=== PATIENT | female | born 1990 | race Caucasian/White ===

== ENCOUNTER 2018-06-18 16:52 | Inpatient (IN) ==
[2018-06-18] MEDS ORDERED: LACTATED RINGER'S 1,000 ML IV PRN ×3 (17:44→21:07)
[2018-06-18] MEDS ORDERED: PENICILLIN G POTASSIUM 6 MU in DEXTROSE 5% 250 ML IV STA (17:44)
[2018-06-18] MEDS ORDERED: OXYTOCIN 30 UNITS/500 ML BAG IV PRN ×2 (17:44→21:07)
[2018-06-18] MEDS: LACTATED RINGER'S 1,000 ML IV SCH ×2 (17:56→19:36)
[2018-06-18] MEDS ORDERED: BETAMETH SOD PHOS/ACETATE IA 6 MG/ML IM SCH (18:00)
[2018-06-18 18:12] LABS: Hematocrit (blood only) 40.9 % (37-47); Hemoglobin 14.2 g/dL (12.0-16.0); Mean Corpuscular Volume 90.9 fL (80-100); Mean Platelet Volume 10.4 fL (7.4-10.4); Platelet Count 243 K/uL (130-400); RDW Coefficient of Variation 12.5 % (11.5-14.5); RDW Standard Deviation 41.1 fL (36.4-46.3); White Blood Count 15.76 K/uL (4.8-10.8)
[2018-06-18 18:13] LABS: Mean Corpuscular Hgb Conc 34.7 g/dL (32-36)
--- NOTE | 2018-06-18 18:32 | History & Physical Report ---
Date of Service June 18, 2018 Assessment & Plan (1) labor: 27yo @ 36 07/21 in spontaneous labor Will admit to L&D, labs, EFM/toco, IV fluids. For labor: GBS is unknown, will begin Pen G for GBS prophylaxis. Since prior to 37w, will give celestone dose now, will likely not be in 24h for 2nd dose. Anticipate office GBS swab results will be available tomorrow. For h/o trichomonas: per [place] STI testing guidelines, will test for HIV , syphilis, Hep B and Hep C. Patient is aware of this and agreeable. Will also collect re-swab for trich today. Paient plans for epidural, ok to request this when she desires. History of Present Illness Chief Complaint: Spontaneous labor Primary Care Provider: NO PCP 27yo @ 36 07/21 presents with spontaneous labor. She had some low back pains overnight, and then approximately 2pm today had gush of clear fluid. Contractions picked up somewhat after ROM. No vaginal bleeding. + movement. is complicated by transfer of care from [place] at 34w when she moved to [place]. She was also diagnosed with trichomonas last month and completed antibiotics 05/27/18. GBS was collected 06/17/18 in the office, this is pending and per lab results will be available tomorrow. Allergies Allergy/AdvReac Type Severity Reaction Status Date / Time bupropion [From Wellbutrin] Allergy Seizure Verified 06/18/18 17:08 tramadol Allergy Seizure Verified 06/18/18 17:08 Home Medications Home Medications Medication Instructions Recorded Confirmed Type PNV cmb#95-ferrous fumarate-FA 06/18/18 History [] Patient History Medical History H/O wisdom tooth extraction Surgical History Hx of cholecystectomy Family History Other Anxiety Depression Social History marital status: Current Living Situation: Parent Other Information That Helps Us Care for You: No Feels Safe at Home: Yes Safety Concerns: Feels Safe At This Time Smoking Status: Current every day smoker Tobacco Type: cigarettes Cigarettes per Day: 12 Hx Alcohol Use: No Hx Substance Use: Yes (opiates and "speed", sober since Jun 2016) substance use type: opiates Last Used Substance Other:: June 2016 Beliefs That Will Affect Care: None Preferred Language: Serbian Communication Ability: Effective Hub Cutter Required: No Review of Systems All systems reviewed & are unremarkable except as noted in HPI & below Physical Exam 2 Vital Signs (Past 24 Hours): Last Vital Signs Temp 36.7 C 06/18/18 17:11 Pulse 123 H 06/18/18 16:57 Resp 20 06/18/18 18:00 BP 135/82 06/18/18 16:57 Physical Exam: Gen: AAOx3 NAD CV: [id number] L: CTAB Abd: soft, gravid, NTTP Ext: no calf tenderness Sterile spec exam: +nitrizine, +pooling, grossly ruptured clear fluid. Visible scalp/hair. SVE: 4/80/-2 FHT: Cat 1 150s mod yinka, +accels, no decels [place]: Q 2-3 min Limited bedside ultrasound: cephalic, anterior placenta. + movement and cardiac activity.
[2018-06-18] MEDS ORDERED: fentaNYL citrate 100 MCG/2 ML VIAL ONE (18:48)
[2018-06-18] MEDS ORDERED: BUPIVACAINE 0.25% 30 ML VIAL ONE (18:48)
[2018-06-18] MEDS ORDERED: ePHEDrine sulfate 50 MG/ML AMP ONE (18:48)
[2018-06-18] MEDS ORDERED: fentaNYL 2MCG/ML ROPIV 1.25MG/ML 100 ML BAG EPI ONE (18:49)
[2018-06-18 19:02] LABS: Hepatitis B Surface Antibody Non-Immune
--- NOTE | 2018-06-18 19:08 | Anesthesiology Consultation ---
Date of Service June 18, 2018 Assessment & Plan Chart Review Chart Review: Acceptable Risk for Labor Epidural Consults Requested none ASA ASA3 Proposed Anesthesia Anesthesia Type: Labor Epidural Risk / Benefits Reviewed With: PT / POA / Parent / Guardian, Accepts Plan and Informed Consent Obtained NPO Date Last Intake of Fluids: 06/18/18 Time Last Intake of Fluids: 15:00 Date Last Intake of Solids: 06/18/18 Time Last Intake of Solids: 14:00 History Height/Weight Height: 5 ft 3 in Weight: 107.955 kg Allergies Allergy/AdvReac Type Severity Reaction Status Date / Time bupropion [From Wellbutrin] Allergy Seizure Verified 06/18/18 17:08 tramadol Allergy Seizure Verified 06/18/18 17:08 Medications Home Medications Medication Instructions Recorded Confirmed Last Taken PNV cmb#95-ferrous fumarate-FA 06/18/18 Unknown [] Active Medications Generic Name Dose Route Start Last Admin Trade Name Freq PRN Reason Stop Dose Admin Betamethasone Acet/Betameth SodPhos 12 mg 06/18/18 18:00 06/18/18 18:24 Celestone Soluspan IM 07/18/18 17:59 12 mg ONCE CHARISMA Administration Lactated Ringer's 1,000 mls @ 125 mls/hr 06/18/18 17:45 06/18/18 18:30 Lr IV 06/20/18 17:44 999 mls/hr .Q8H CHARISMA Infusion Past Medical History Medical History GERD (gastroesophageal reflux disease) H/O wisdom tooth extraction [place] teeth extracted Past Family History Family History Other Anxiety Depression Past Surgical History Surgical History Hx of cholecystectomy Past Anesthesia History No Hx of Anesthesia Complications and No Family Hx of Anesthesia Complications History of PONV No Motion Sickness Screening History of Motion Sickness: No Social History Smoking Status: Current every day smoker tobacco type: cigarettes Smoking cigarettes per day: 12 Hx Alcohol Use: No Hx Substance Use: Yes (opiates and "speed", sober since Jun 2016) substance use type: opiates Last Used Substance Other:: June 2016 Exercise / Class Metabolic Activity III < 4 Walking/Shop/Light housework Physical Exam Vital Signs Last Vital Signs Temp 36.7 C 06/18/18 17:11 Pulse 113 H 02/02/19 19:04 Resp 22 06/18/18 18:30 BP 130/87 06/18/18 18:56 Pulse Ox 100 06/18/18 19:04 ENMT Mouth: no dentition abnormality Thyromental Distance: > or= 3.5 Finger Breadths Mallampati Class: II Neck normal visual inspection and trachea midline; neck extension not limited Respiratory normal respiratory effort Auscultation: lungs clear to auscultation bilaterally Cardiovascular Rate/Rhythm: regular rate and regular rhythm Heart Sounds: no murmur Vessels: no carotid bruit Musculoskeletal Spine: lumbar spine normal to inspection; normal cervical ROM Neurologic moves all extremities Motor/Sensory: no sensory deficit Psychiatric Orientation: alert and oriented x 3 Testing Laboratory Results 06/18/18 17:59
[2018-06-18] MEDS ORDERED: fentaNYL 2MCG/ML ROPIV 1.25MG/ML 100 ML BAG EPI PRN (19:38)
[2018-06-18] MEDS ORDERED: ONDANSETRON INJ 2 MG/ML 2 ML VIAL IV PRN (19:38)
[2018-06-18] MEDS ORDERED: NALOXONE HCL 0.4 MG/1 ML VIAL/CARP IV PRN (19:38)
[2018-06-18] MEDS ORDERED: NALOXONE HCL 1 MG in SODIUM CHLORIDE 0.9% 1000ML 1,000 ML IV PRN (19:38)
[2018-06-18] MEDS ORDERED: DiphenhydrAMINE HCL 50 MG/ML VIAL IV PRN (19:38)
[2018-06-18] MEDS ORDERED: PROMETHAZINE HCL 25 MG in SODIUM CHLORIDE 0.9% 50 ML IV PRN (19:38)
[2018-06-18] MEDS ORDERED: NALBUPHINE HCL INJ 10 MG/ML AMP IV PRN (19:38)
[2018-06-18] MEDS ORDERED: ePHEDrine sulfate 50 MG/ML AMP IV PRN (19:38)
[2018-06-18 19:41] LABS: Hepatitis C IgG 13Yrs+Old_Rflx Neg (Neg)
--- NOTE | 2018-06-18 20:10 | Obstetrical Progress Note ---
Date of Service June 18, 2018 Subjective Comfortable with epidural. TUMS for GERD symptoms. FHT Cat 1. Ctx Q 2-3 Continue labor. Physical Exam 2 Vital Signs (Past 24 Hours): Last Vital Signs Temp 37.0 C 06/18/18 19:30 Pulse 134 H 06/18/18 20:04 Resp 20 06/18/18 20:00 BP 103/64 06/18/18 20:02 Pulse Ox 100 06/18/18 20:04
[2018-06-18] MEDS: CALCIUM CARBONATE 500 MG CHEWABLE TAB PO PRN (20:21)
--- NOTE | 2018-06-18 21:23 | Obstetrical Progress Note ---
Date of Service June 18, 2018 Subjective Comfortable with epidural. FHT 170s, mod yinka, +accels, no decels. [place]: not picking up ctx, difficult to palpate due to body habitus. IUPC placed. Will monitor to determine if ctx have slowed, if so will begin pitocin. Patient is agreeable to this plan. Suspect FHT elevated due to administration of ephedrine after epidural. Continue to monitor. Physical Exam 2 Vital Signs (Past 24 Hours): Last Vital Signs Temp 37.0 C 06/18/18 19:30 Pulse 111 H 06/18/18 21:19 Resp 20 06/18/18 20:30 BP 124/65 06/18/18 21:19 Pulse Ox 100 06/18/18 21:19
[2018-06-18] MEDS: PENICILLIN G POTASSIUM 3 MU in DEXTROSE 5% 100 ML IV PRN (23:35)
[2018-06-19] MEDS: LACTATED RINGER'S 1,000 ML IV SCH (02:16)
[2018-06-19] MEDS: PENICILLIN G POTASSIUM 3 MU in DEXTROSE 5% 100 ML IV PRN ×2 (04:23→08:19)
[2018-06-19] MEDS: CALCIUM CARBONATE 500 MG CHEWABLE TAB PO PRN (04:36)
--- NOTE | 2018-06-19 06:49 | Obstetrical Progress Note ---
Date of Service June 19, 2018 Subjective Completely dilated, +1 station, feeling urge to push. FHT Cat 1. [place] Q 2. Continue pushing. Anticipate . Physical Exam 2 Vital Signs (Past 24 Hours): Last Vital Signs Temp 37.2 C 06/19/18 04:01 Pulse 137 H 06/19/18 06:44 Resp 18 06/19/18 06:00 BP 111/55 L 06/19/18 06:38 Pulse Ox 89 L 06/19/18 06:44
[2018-06-19] MEDS ORDERED: METHYLERGONOVINE MALEATE 0.2 MG/ML AMP ONE (09:02)
[2018-06-19] MEDS ORDERED: OXYCODONE/ACETAMINOPHEN 5mg/325mg TAB PO PRN (09:24)
[2018-06-19] MEDS ORDERED: HYDROCORTISONE ACETATE 25 MG SUPP PR PRN (09:24)
[2018-06-19] MEDS ORDERED: BENZOCAINE 20% AER SPR 82.5 GM CAN EXT PRN (09:24)
[2018-06-19] MEDS ORDERED: METHYLERGONOVINE MALEATE 0.2 MG/ML AMP IM ONE (09:24)
[2018-06-19] MEDS ORDERED: SUPERCREAM 0.870% 15 GM JAR EXT PRN (09:24)
[2018-06-19] MEDS ORDERED: DIPHTHERIA/TETANUS/PERTUSSIS 0.5 ML SYR/VIAL IM ONE (09:24)
[2018-06-19] MEDS ORDERED: OXYTOCIN 30 UNITS/500 ML BAG IV PRN (09:24)
--- NOTE | 2018-06-19 09:25 | Procedure Note ---
Vaginal Delivery Summary Date of Service June 19, 2018 Vaginal Delivery Summary Predelivery diagnoses: 27-year-old at 36 weeks 4 days, spontaneous labor , history of trichomonas treated in this Post delivery diagnoses: Same Procedure: Spontaneous vaginal delivery, repair of first-degree perineal laceration Estimated blood loss: 400 mL Surgeon: Dr. Land Complications: None Description of delivery: Patient presented after spontaneous rupture of membranes at home and regular contractions, she was admitted and desired an epidural. After a nutrition epidural, her contractions spaced out significantly and an IUPC was placed and Pitocin was given. She progressed to complete and began to push. She spontaneously vaginally delivered a viable male from the cephalic presentation. Head delivered in left occiput anterior position, no nuchal cord was noted, anterior shoulder delivered followed by posterior shoulder followed by body. Baby was placed on mother's abdomen and spontaneous cry was heard. Delayed cord clamping was employed, and after 1 minute the cord was doubly clamped and cut. Cord blood was obtained. The placenta was then delivered spontaneously intact with a three-vessel cord. The uterus was swept of all clots and debris. Pitocin was given and the uterus began to clamp down. However it was still somewhat boggy, so a dose of Methergine was given to obtain excellent hemostasis. The cervix vagina and perineum were inspected, and a first-degree perineal laceration was noted and repaired in standard fashion with 3-0 Vicryl. Excellent hemostasis was observed. Sponge, instrument, needle counts were correct at the conclusion of the delivery x2. Mother and baby are recovering in stable and good condition in the room.
[2018-06-19] MEDS ORDERED: CALCIUM CARBONATE 500 MG CHEWABLE TAB PO PRN (09:39)
--- NOTE | 2018-06-19 09:43 | Anesthesia Procedure Note ---
Date of Service June 19, 2018 Anesthesia Post Epidural Note Vital Signs Vital Signs: Temp Pulse Resp BP Pulse Ox 06/19/18 09:39 120 H 108/62 06/19/18 09:23 106/67 06/19/18 09:22 20 06/19/18 09:08 113 H 101/61 06/19/18 09:02 114 H 114/72 06/19/18 08:54 126 H 98 06/19/18 08:51 114 H 92 06/19/18 08:49 110 H 97 06/19/18 08:45 124 H 93 06/19/18 08:44 118 H 96 06/19/18 08:40 112 H 94 06/19/18 08:39 119 H 90 06/19/18 08:38 120 H 112/67 06/19/18 08:37 20 06/19/18 08:35 118 H 91 06/19/18 08:34 123 H 94 06/19/18 08:30 137 H 94 06/19/18 08:29 108 H 94 06/19/18 08:24 122 H 105/55 L 92 06/19/18 08:19 109 H 89 L 06/19/18 08:18 105 H 94 06/19/18 08:14 104 H 92 06/19/18 08:13 110 H 90 06/19/18 08:09 110 H 118/67 97 06/19/18 08:08 20 06/19/18 08:06 111 H 94 06/19/18 08:04 114 H 95 06/19/18 08:01 126 H 90 06/19/18 07:59 127 H 94 06/19/18 07:56 118 H 94 06/19/18 07:54 109 H 117/62 96 06/19/18 07:50 134 H 93 06/19/18 07:49 112 H 94 06/19/18 07:44 125 H 92 06/19/18 07:39 119 H 118/58 L 90 06/19/18 07:34 117 H 97 06/19/18 07:33 121 H 91 06/19/18 07:29 132 H 96 06/19/18 07:25 132 H 92 06/19/18 07:24 138 H 90 06/19/18 07:23 125 H 108/55 L 06/19/18 07:20 121 H 93 06/19/18 07:19 156 H 97 06/19/18 07:15 120 H 90 06/19/18 07:14 130 H 87 L 06/19/18 07:10 129 H 92 06/19/18 07:09 130 H 94 06/19/18 07:04 133 H 88 L 06/19/18 07:00 37.0 C 20 06/19/18 06:59 127 H 93 06/19/18 06:58 134 H 94 06/19/18 06:54 131 H 95 06/19/18 06:53 132 H 109/61 92 06/19/18 06:49 127 H 95 06/19/18 06:48 128 H 90 06/19/18 06:44 137 H 89 L 06/19/18 06:41 125 H 94 06/19/18 06:39 128 H 95 06/19/18 06:38 130 H 111/55 L 06/19/18 06:35 129 H 81 L 06/19/18 06:34 128 H 96 06/19/18 06:29 133 H 98 06/19/18 06:24 126 H 115/56 L 97 06/19/18 06:19 130 H 97 06/19/18 06:18 131 H 94 06/19/18 06:14 139 H 92 06/19/18 06:09 112 H 115/79 99 06/19/18 06:07 118 H 92 06/19/18 06:04 122 H 97 06/19/18 06:02 117 H 91 06/19/18 06:00 18 06/19/18 05:59 123 H 96 06/19/18 05:54 119 H 92 06/19/18 05:53 116 H 113/68 06/19/18 05:49 108 H 95 06/19/18 05:47 116 H 93 06/19/18 05:44 116 H 95 06/19/18 05:42 112 H 94 06/19/18 05:39 108 H 113/68 96 06/19/18 05:35 113 H 94 06/19/18 05:34 109 H 95 06/19/18 05:29 110 H 94 06/19/18 05:24 105 H 96 06/19/18 05:23 108 H 120/64 93 06/19/18 05:19 112 H 93 06/19/18 05:17 111 H 94 06/19/18 05:14 122 H 95 06/19/18 05:11 121 H 94 06/19/18 05:09 120 H 96 06/19/18 05:08 120 H 118/64 06/19/18 05:06 107 H 94 06/19/18 05:04 103 H 92 06/19/18 05:00 113 H 20 93 06/19/18 04:59 104 H 93 06/19/18 04:54 102 H 96 06/19/18 04:53 112 H 112/74 93 06/19/18 04:49 112 H 94 06/19/18 04:45 121 H 94 06/19/18 04:44 113 H 94 06/19/18 04:39 115 H 120/72 92 06/19/18 04:34 118 H 92 06/19/18 04:29 123 H 99 06/19/18 04:25 126 H 90 06/19/18 04:24 123 H 94 06/19/18 04:23 123 H 114/68 06/19/18 04:19 106 H 95 06/19/18 04:14 115 H 95 06/19/18 04:10 113 H 94 06/19/18 04:09 123 H 96 06/19/18 04:08 118 H 117/68 06/19/18 04:05 114 H 92 06/19/18 04:04 112 H 98 06/19/18 04:01 37.2 C 18 06/19/18 03:59 112 H 89 L 06/19/18 03:54 109 H 97 06/19/18 03:53 114 H 115/69 06/19/18 03:52 108 H 93 06/19/18 03:49 112 H 95 06/19/18 03:47 120 H 93 06/19/18 03:44 110 H 97 06/19/18 03:41 106 H 94 06/19/18 03:39 117 H 97 06/19/18 03:38 117 H 114/68 06/19/18 03:34 118 H 96 06/19/18 03:29 105 H 95 06/19/18 03:25 112 H 92 06/19/18 03:24 107 H 100 06/19/18 03:23 109 H 117/69 06/19/18 03:19 122 H 94 02/03/19 03:14 115 H 95 06/19/18 03:13 110 H 93 06/19/18 03:09 110 H 97 06/19/18 03:08 109 H 18 116/67 06/19/18 03:04 118 H 90 06/19/18 02:59 102 H 96 06/19/18 02:54 109 H 98 06/19/18 02:53 106 H 116/66 06/19/18 02:49 110 H 94 06/19/18 02:44 112 H 94 06/19/18 02:42 97 H 92 06/19/18 02:39 106 H 95 06/19/18 02:38 107 H 114/58 L 06/19/18 02:37 113 H 94 06/19/18 02:34 112 H 93 06/19/18 02:31 103 H 94 06/19/18 02:29 107 H 96 06/19/18 02:25 105 H 94 06/19/18 02:24 112 H 95 06/19/18 02:23 112 H 112/61 06/19/18 02:20 107 H 94 06/19/18 02:19 109 H 95 06/19/18 02:14 114 H 94 06/19/18 02:10 37.2 C 18 06/19/18 02:09 115 H 94 06/19/18 02:08 111 H 117/67 06/19/18 02:04 103 H 94 06/19/18 02:02 116 H 94 06/19/18 01:59 111 H 95 06/19/18 01:54 109 H 116/62 95 06/19/18 01:53 105 H 94 06/19/18 01:49 101 H 95 06/19/18 01:47 105 H 94 06/19/18 01:44 113 H 95 06/19/18 01:41 105 H 94 06/19/18 01:39 108 H 96 06/19/18 01:38 117 H 116/64 06/19/18 01:34 103 H 94 06/19/18 01:30 16 06/19/18 01:29 104 H 93 06/19/18 01:24 104 H 94 06/19/18 01:23 105 H 110/56 L 06/19/18 01:22 100 H 94 06/19/18 01:19 106 H 94 06/19/18 01:16 111 H 94 06/19/18 01:14 102 H 94 06/19/18 01:10 111 H 94 06/19/18 01:09 111 H 94 06/19/18 01:08 106 H 110/62 06/19/18 01:04 121 H 94 06/19/18 00:59 106 H 94 06/19/18 00:54 100 H 95 06/19/18 00:53 103 H 110/66 06/19/18 00:49 103 H 94 06/19/18 00:44 104 H 94 06/19/18 00:43 104 H 94 06/19/18 00:39 109 H 98 06/19/18 00:38 107 H 112/57 L 06/19/18 00:37 37.0 C 18 06/19/18 00:34 110 H 92 06/19/18 00:29 107 H 93 06/19/18 00:24 110 H 95 06/19/18 00:23 119 H 126/66 92 06/19/18 00:19 116 H 96 06/19/18 00:17 110 H 93 06/19/18 00:14 113 H 98 06/19/18 00:11 113 H 94 06/19/18 00:09 110 H 117/73 98 06/19/18 00:04 115 H 96 06/19/18 00:02 114 H 91 06/18/18 23:59 123 H 97 06/18/18 23:54 119 H 94 06/18/18 23:53 106 H 114/63 06/18/18 23:49 115 H 98 06/18/18 23:48 114 H 93 06/18/18 23:44 117 H 98 06/18/18 23:39 125 H 95 06/18/18 23:38 129 H 109/57 L 06/18/18 23:34 118 H 96 06/18/18 23:30 20 06/18/18 23:29 130 H 94 06/18/18 23:24 123 H 95 06/18/18 23:23 122 H 107/56 L 06/18/18 23:19 132 H 94 06/18/18 23:18 131 H 93 06/18/18 23:14 122 H 94 02/02/19 23:13 121 H 94 06/18/18 23:09 124 H 93 06/18/18 23:08 127 H 100/54 L 94 06/18/18 23:05 37.3 C 18 06/18/18 23:04 123 H 96 06/18/18 23:00 20 06/18/18 22:59 125 H 94 06/18/18 22:58 122 H 94 06/18/18 22:54 125 H 103/57 L 94 06/18/18 22:49 115 H 93 06/18/18 22:47 117 H 94 06/18/18 22:44 120 H 95 06/18/18 22:39 131 H 106/59 L 96 06/18/18 22:35 124 H 94 06/18/18 22:34 129 H 96 06/18/18 22:30 20 06/18/18 22:29 137 H 95 06/18/18 22:24 129 H 109/58 L 95 06/18/18 22:19 127 H 95 06/18/18 22:14 133 H 96 06/18/18 22:09 126 H 98 06/18/18 22:08 114 H 112/65 06/18/18 22:06 118 H 91 06/18/18 22:04 121 H 100 06/18/18 22:00 129 H 20 94 06/18/18 21:59 123 H 97 06/18/18 21:54 114 H 108/72 95 06/18/18 21:52 122 H 92 06/18/18 21:49 118 H 96 06/18/18 21:44 125 H 99 06/18/18 21:41 116 H 115/64 06/18/18 21:39 119 H 98 06/18/18 21:34 115 H 128/78 100 06/18/18 21:30 37.0 C 113 H 20 90 06/18/18 21:29 114 H 97 06/18/18 21:24 122 H 96 06/18/18 21:19 111 H 124/65 100 06/18/18 21:18 116 H 94 06/18/18 21:14 116 H 99 06/18/18 21:12 119 H 89 L 06/18/18 21:09 111 H 100 06/18/18 21:05 121 H 90 06/18/18 21:04 107 H 100 06/18/18 21:00 20 06/18/18 20:59 117 H 100 06/18/18 20:54 112 H 94 06/18/18 20:53 99 H 115/75 06/18/18 20:52 116 H 93 06/18/18 20:49 112 H 100 06/18/18 20:44 115 H 100 06/18/18 20:43 116 H 94 06/18/18 20:39 119 H 100 06/18/18 20:38 116 H 116/77 06/18/18 20:34 139 H 100 06/18/18 20:30 20 06/18/18 20:29 123 H 100 06/18/18 20:24 133 H 100 06/18/18 20:23 144 H 110/76 06/18/18 20:21 146 H 91 06/18/18 20:19 143 H 100 06/18/18 20:17 148 H 108/62 06/18/18 20:14 134 H 100 06/18/18 20:11 137 H 109/56 L 06/18/18 20:09 136 H 99 06/18/18 20:04 134 H 100 06/18/18 20:02 141 H 103/64 06/18/18 20:00 20 06/18/18 19:59 127 H 100 06/18/18 19:57 136 H 120/72 06/18/18 19:54 140 H 98 06/18/18 19:53 141 H 91 06/18/18 19:50 133 H 105/50 L 06/18/18 19:49 136 H 99 06/18/18 19:46 130 H 109/54 L 06/18/18 19:44 133 H 100 06/18/18 19:42 74 101/55 L 06/18/18 19:40 137 H 115/52 L 06/18/18 19:39 131 H 96 06/18/18 19:36 139 H 118/55 L 06/18/18 19:34 127 H 124/58 L 100 06/18/18 19:31 117 H 105/48 L 06/18/18 19:30 37.0 C 20 06/18/18 19:29 128 H 100 06/18/18 19:28 141 H 102/58 L 06/18/18 19:24 110 H 93 06/18/18 19:19 126 H 94 06/18/18 19:14 131 H 85 L 06/18/18 19:09 123 H 100 06/18/18 19:04 113 H 100 06/18/18 19:00 108 H 90 06/18/18 18:59 113 H 95 06/18/18 18:56 109 H 130/87 06/18/18 18:54 106 H 100 06/18/18 18:49 104 H 98 06/18/18 18:46 106 H 88 L 06/18/18 18:44 102 H 97 06/18/18 18:39 113 H 99 06/18/18 18:34 107 H 98 06/18/18 18:30 22 06/18/18 18:00 20 06/18/18 17:30 20 06/18/18 17:11 36.7 C 20 06/18/18 16:57 123 H 135/82 Notes Mental Status: alert / awake / arousable Nausea / Vomiting: adequately controlled Pain: adequately controlled Airway Patency, RR, SpO2: stable & adequate BP & HR: stable & adequate Hydration State: stable & adequate Neuraxial Anesthesia: was administered Anesthetic Complications: no major complications apparent Epidural: Removed without complications and With tip intact
[2018-06-19] MEDS: IBUPROFEN 600 MG TAB PO PRN ×2 (12:46→17:43)
[2018-06-19] MEDS: ACETAMINOPHEN 325 MG TAB PO PRN (15:58)
--- NOTE | 2018-06-19 17:17 | Psychiatric Consultation ---
Date of Consultation June 19, 2018 Impression / Recommendations Impression 27 yo female, hx of substance use disorder, currently in sustained remission and remains committed to recovery, s/p delivery of first child and reports stable mood during . Baseline EPDS completed. Case reviewed briefly with attending OB. Patient agreeable to intake information for addison Castañeda completed ZAC. CPT Code 62008 Psych History Identifying Data 27 yo female, recently returned home to the [facility] from [place] to have more family support following the of her first child. Consult is by Dr. Land for screening/proactive interventions due to patient risk of depression. Chief Complaint "I just want to make sure that I stay OK for my baby". History of Present Illness Akua relates some history of anxiety/depression that in the past coincided with some substance abuse. She endorsed past use of opiates and "speed" and is proud to be sober since fall. She had moved to [place] for recovery support and although she has not intention of using again, being back "home" around old influences is understandably on her mind. She is glad to have parents for support and did not mention father of child. She feels her mood and anxiety were stable throughout her and completed an [place] depression scale and scored 9 (subclincal). She wanted to know best options for monitoring her mood and how to access services locally if indicated. She apparently alluded to some custodial time in the past related to failing drug tests. Again, she remains committed to her recovery and would be open to services locally or in [place]. She denies a history of ines or suicide attempts or prior hospitalizations. She apparently had a seizure on Wellbutrin in the past. Last use of psychiatric medication was over 2 years ago, Buspar and trazodone and reports " I don't feel like I need any of that now". Allergies Allergy/AdvReac Type Severity Reaction Status Date / Time bupropion [From Wellbutrin] Allergy Seizure Verified 06/18/18 17:08 tramadol Allergy Seizure Verified 06/18/18 17:08 Home Medications Home Medications Medication Instructions Recorded Confirmed Type PNV cmb#95-ferrous fumarate-FA 06/18/18 History [] Personal History Beliefs That Will Affect Care: None Patient History Medical History GERD (gastroesophageal reflux disease) H/O wisdom tooth extraction [place] teeth extracted Surgical History Hx of cholecystectomy Family History Other Anxiety Depression Social History marital status: Single Current Living Situation: Parent Other Information That Helps Us Care for You: No Feels Safe at Home: Yes Safety Concerns: Feels Safe At This Time Smoking Status: Current every day smoker Tobacco Type: cigarettes Cigarettes per Day: 12 Hx Alcohol Use: No Hx Substance Use: Yes (opiates and "speed", sober since Jun 2016) substance use type: opiates Last Used Substance Other:: June 2016 Beliefs That Will Affect Care: None Communication Ability: Effective Physical Exam Psychiatric A+Ox3, euthymic affect Eye Contact: good eye contact Speech: normal rate/rhythm/volume of speech Affect: euthymic affect Thought Process: goal directed thought process Thought Content: no preoccupation Suicidal Thoughts: denies suicidal thoughts Homicidal Thoughts: denies homicidal thoughts Hallucinations: no auditory hallucinations and no visual hallucinations Insight: good insight Vital Signs (Past 24 Hours) Last Vital Signs Temp 36.4 C L 06/19/18 16:00 Pulse 95 H 06/19/18 16:00 Resp 18 06/19/18 16:00 BP 119/74 06/19/18 16:00 Pulse Ox 98 06/19/18 08:54 Results & Data Medications Administered Acetaminophen (Tylenol) 650 mg PO Q6H PRN PRN Reason: Pain/ALLEN/Fever Stop: 07/19/18 09:23 Last Admin: 06/19/18 15:58 Dose: 650 mg Benzocaine (Dermoplast Pain Relieving Amonate) 1 appln EXT PRN PRN PRN Reason: Perineal Discomfort Stop: 07/19/18 09:23 Last Admin: 06/19/18 12:44 Dose: 1 appln Oxytocin (Pitocin) 30 units in 500 mls @ 333.333 mls/hr IV .Q1H30M PRN; Protocol PRN Reason: BLEEDING CONTROL Stop: 07/19/18 09:23 Last Admin: 06/19/18 09:55 Dose: 20 units/hr, 333.3 mls/hr Ibuprofen (Motrin) 600 mg PO Q4H PRN PRN Reason: Pain/ALLEN/Cramping/Fever Stop: 07/19/18 09:23 Last Admin: 06/19/18 12:46 Dose: 600 mg
[2018-06-19] MEDS: DOCUSATE SODIUM 100 MG CAP PO SCH (21:03)
[2018-06-20] MEDS: IBUPROFEN 600 MG TAB PO PRN ×4 (03:11→20:00)
[2018-06-20 06:21] LABS: Hematocrit (blood only) 33.5 % (37-47); Hemoglobin 11.3 g/dL (12.0-16.0)
--- NOTE | 2018-06-20 06:26 | Obstetrical Progress Note ---
Date of Service <Chester Smith MD - Last Filed: 06/20/18 06:26> June 20, 2018 Assessment & Plan <Chester Smith MD - Last Filed: 06/20/18 06:26> (1) (normal spontaneous vaginal delivery): Akua is a 27yo who presented at 36+6 in labor now s/p PPD# 1. - History of drug abuse in remission. Psych consulted. Baseline EPDS completed, pt was agreeable to intake information for addison Castañeda completed [facility]. - Blood Type A+ - Bottle feeding - Feels well today. Eating well, voiding well, ambulating well. - Pain well controlled with ibuprofen 600mg Q4H PRN. - Routine care - After discharge will have [address] Land. (2) 36 weeks gestation of : Subjective <Chester Smith MD - Last Filed: 06/20/18 06:26> Ambulation: ambulating normally Voiding: no voiding problems Passing Gas:: Yes Diet Tolerance:: regular diet Lochia:: Moderate Feeding Type:: bottle feeding Current Pain Level(1-10): 5 (improved with motrin) Review of Systems Denies fever, chills, sweats Denies shortness of breath, difficulty breathing, chest pain, palpitations, chest pressure. Denies breast pain. Denies dysuria. Denies headache. Physical Exam <Chester Smith MD - Last Filed: 06/20/18 06:26> Vital Signs (Past 24 Hours) Last Vital Signs Temp 36.4 C L 06/20/18 03:10 Pulse 82 06/20/18 03:10 Resp 18 06/20/18 03:10 BP 97/51 L 06/20/18 03:10 Pulse Ox 96 06/20/18 03:10 General: Alert, oriented. No acute distress. Cardiac: Regular rate and rhythm, no murmurs/rubs/gallops. Respiratory: Clear to auscultation anterior and posteriorly, no wheezes/rales/ rhonchi. No increased work of breathing. Symmetrical chest rise. No respiratory distress. Abdomen: Soft, nontender, nondistended. Bowel sounds present. Uterus: Uterine fundus firm, palpable 1-2cm below umbilicus. Lower Extremities: No lower extremity edema or swelling. No deep calf pain. Juju's negative bilaterally. <Yarely Land DO - Last Filed: 06/20/18 06:58> Co-Signing Physician Notes I have seen/examined patient. I have read above note performed by resident and I agree with above. Any changes/additions are as follows: PPD#1 doing well, continue routine care. Yarely Land DO [facility] Resident Activity Tracking <Chester Smith MD - Last Filed: 06/20/18 06:26> Resident Involvement: Resident Care Provided Care Provided: Adult [facility]
[2018-06-20] MEDS: PRENATAL VITAMIN 1 TAB PO SCH (07:33)
[2018-06-20] MEDS: DOCUSATE SODIUM 100 MG CAP PO SCH ×2 (07:35→20:02)
--- NOTE | 2018-06-20 14:17 | Communication Note ---
Date of Service: June 20, 2018 Question delivered through the liaison nurse as to which antidepressant we would recommend as the patient was now willing to consider. I would suggest Zoloft 25 mg daily X 1 week then increasing to 50 mg daily, and should be seen by PCP/OB/or psych provider at that point for further titration. Liaison nurse has had her sign releases of information for OP psychiatric services, but will not likely be able to be seen for meds for weeks to months.
[2018-06-20] MEDS ORDERED: BISACODYL 5 MG TABEC PO SCH (20:00)
[2018-06-20] MEDS: ACETAMINOPHEN 325 MG TAB PO PRN (23:20)
--- NOTE | 2018-06-21 06:37 | Obstetrical Progress Note ---
Date of Service <Chester Smith MD - Last Filed: 06/21/18 06:37> June 21, 2018 Assessment & Plan <Chester Smith MD - Last Filed: 06/21/18 06:37> (1) (normal spontaneous vaginal delivery): Akua is a 27yo who presented at 36+6 in labor now s/p PPD# 2. - History of drug abuse in remission. Psych consulted. Baseline EPDS completed, pt was agreeable to intake information for addison Castañeda completed [facility]. - Was seen by Psych liason nurse to discuss above and anxiety/depression. Recommended to start Sertraline 25mg daily then increase to 50mg daily in one week. She will require PCP/Psych followup for management of this, and a point of contact in 1 week after starting the SSRI. Currently has no PCP as she just moved from [place] and psych intake will take several weeks, will attempt to establish a provider. - Bottle feeding - Feels well today. Eating well, voiding well, ambulating well. - Pain well controlled with ibuprofen 600mg Q4H PRN. - Routine care - After discharge will have [address] Land. (2) 36 weeks gestation of : Subjective <Chester Smith MD - Last Filed: 06/21/18 06:37> Ambulation: ambulating normally Voiding: no voiding problems Passing Gas:: Yes Diet Tolerance:: regular diet Lochia:: Moderate Feeding Type:: bottle feeding Current Pain Level(1-10): 5 (improved with rx) Review of Systems Denies fever, chills, sweats Denies shortness of breath, difficulty breathing, chest pain, palpitations, chest pressure. Denies breast pain. Denies dysuria. Denies headache. Physical Exam <Chester Smith MD - Last Filed: 06/21/18 06:37> Vital Signs (Past 24 Hours) Last Vital Signs Temp 36.6 C 06/20/18 23:35 Pulse 89 06/20/18 23:35 Resp 18 06/20/18 23:35 BP 120/70 06/20/18 23:35 Pulse Ox 96 06/20/18 23:35 General: Alert, oriented. No acute distress. Cardiac: Regular rate and rhythm, no murmurs/rubs/gallops. Respiratory: Clear to auscultation anterior and posteriorly, no wheezes/rales/ rhonchi. No increased work of breathing. Symmetrical chest rise. No respiratory distress. Abdomen: Soft, nontender, nondistended. Bowel sounds present. Uterus: Uterine fundus firm, palpable 3cm below umbilicus. Lower Extremities: No lower extremity edema or swelling. No deep calf pain. Juju's negative bilaterally. <James Wetzel MD, FACOG - Last Filed: 06/21/18 07:54> Co-Signing Physician Notes Resident Physician Supervision Note: I interviewed and examined the patient. Discussed with Dr. Smith and agree with findings and plan as documented in the note. Any exceptions or clarifications are listed here: [None] Documented By: James Wetzel MD, FACOG Resident Activity Tracking <Chester Smith MD - Last Filed: 06/21/18 06:37> Resident Involvement: Resident Care Provided Care Provided: Adult [facility]
[2018-06-21] MEDS ORDERED: BISACODYL 10 MG SUPP PR PRN (07:00)
[2018-06-21] MEDS: IBUPROFEN 600 MG TAB PO PRN ×2 (08:23→12:46)
[2018-06-21] MEDS: DOCUSATE SODIUM 100 MG CAP PO SCH (08:23)
[2018-06-21] MEDS: PRENATAL VITAMIN 1 TAB PO SCH (08:23)
== END 2018-06-21 13:45 | disposition home or self-care (01) | DRG 807 ==
LOC: OPB 16:52 → 4S1 16:52 → 4S2 06-19 12:09